=== PATIENT | male | born 1960 | race Caucasian/White ===

== ENCOUNTER 2017-02-14 15:35 | Emergency (ER) | payer OTHER ==
--- NOTE | 2017-03-05 15:51 | ER ---
ADMIT: 02/14/2017 RM/LOC: [facility] MR#: [id number] [address] [place] [id number] RON KYM [address] [address] Emergency Room Report SEX: M AGE: 56 : 1960 DATE: 02/14/2017 Patient is a 56-year-old male, who presents to the emergency room complaining of chest pain and shortness of breath. He says when he awoke this morning, he has some pain that started in the right upper chest. He denies any fatigue. He just had some loose stool, but no vomiting. ALLERGIES: HE HAS AN ALLERGY TO NEOSPORIN. MEDICATIONS: 1. Prozac. 2. Olanzapine. 3. Lamotrigine. 4. [place], which he really did not know the name of this 4th medication. Apparently is one of the newest one. He said he has been taking it for about a month now. He goes to [facility] where his medications are monitored by a behavioral counselor. PAST MEDICAL HISTORY: Anxiety, depression, heart palpitations, throat polyps, zaid, history of heart disease. PHYSICAL EXAMINATION: VITAL SIGNS: Blood pressure 128/180, pulse 70, respirations 16, temp 98.3, and O2 sats 98%. GENERAL: Looks pretty anxious. HEENT: Normal inspection. NECK: Supple. No bruits. No lymphadenopathy. RESPIRATION: No distress. CVS: Regular. ABDOMEN: Right upper abdominal tenderness. SKIN: Good color and turgor. EXTREMITIES: Nonedematous. NEURO: Oriented x4. Mood and affect flat and anxious. ADMIT: 02/14/2017 RM/LOC: [facility] MR#: [id number] [address] [place], [place] [id number] KYM VELASQUEZ [address] [place] [address] Emergency Room Report SEX: M AGE: 56 : 1960 LABORATORY DATA: CBC normal limits. Chemistry, glucose 107. H. pylori nonreactive. Troponin 0.015. [place] level is low, is less than 0.2. EKG normal sinus rhythm at 72 beats per minute. CLINICAL IMPRESSION: Medication reaction, palpitations. Advised to follow up with Fiorella Leal as he has had this medication for months. Needs to have a better monitoring, his level needs to be increased. He needs to keep hydrated. No prescriptions given at this time. Most likely, he is also having some anxiety reaction. He has an appointment on March 01 but will call earlier than that to see if he can get in for a followup appointment and medication re-evaluation. ZACHARY Kim / Rony Nettles MD / daniel JOB #: [id number] CC: Rony Nettles MD, Attending Physician Jayme Garcia MD, Family Physician
== END 2017-02-14 18:15 | disposition home or self-care (01) ==
LOC: ER 15:35
DX: T50.905A Adverse effect of unspecified drugs, medicaments and biological substances, initial encounter (principal); R00.2 Palpitations; F32.9 Major depressive disorder, single episode, unspecified; F41.9 Anxiety disorder, unspecified; Z90.49 Acquired absence of other specified parts of digestive tract; Z79.899 Other long term (current) drug therapy; Z88.1 Allergy status to other antibiotic agents

== ENCOUNTER → 2017-05-31 | Outpatient (CLI) | payer OTHER | END | disposition home or self-care (01) | LOC: PTH.S 08:04 | DX: F33.1 Major depressive disorder, recurrent, moderate (principal); Z79.899 Other long term (current) drug therapy ==